=== PATIENT | female | born 1990 | race African-American/Black ===

== ENCOUNTER 2016-11-18 08:46 | Emergency (ER) | payer MEDICAID ==
[~2016-11-18] VITALS: Ht 162.6 cm; Wt 77.0 kg
[~2016-11-18 08:46] MED LIST: ALBU2.5V13 IH; FLUT1DIS IH; MOME13HF2 INH; PREDNISON PO; [UNRECOGNIZED DRUG - OTHER]
[2016-11-18] MEDS ORDERED: ALBUTEROL (0.083%) 2.5MG/3ML NEB HHN STA (09:51)
[2016-11-18] MEDS ORDERED: PREDNISONE 20MG TABLET PO STA (09:51)
[2016-11-18] MEDS ORDERED: IPRATROPIUM BROMIDE (0.02%) 0.5MG/2.5ML NEB HHN STA (09:51)
[2016-11-18 11:21] VITALS: BP 122/69
== END 2016-11-18 11:35 | disposition home or self-care (01) ==
LOC: ER 10:28
DX: J45.901 Unspecified asthma with (acute) exacerbation (principal); Z91.011 Allergy to milk products
CPT/HCPCS: 94640; 99283; J7512; J7611